=== PATIENT | male | born 1955 | race Caucasian/White ===

== ENCOUNTER 2017-01-15 14:37 | Emergency (ER) | payer OTHER ==
[2017-01-15 14:58] VITALS: RESP 16; TEMP 98.1
[2017-01-15] MEDS ORDERED: NS 1,000 ML IV ONE (15:43)
[2017-01-15] MEDS ORDERED: VANCOMYCIN HCL/NORMAL SALINE 250 ML IV ONE (15:44)
--- NOTE | 2017-01-15 15:59 | EDPHY ---
H & P Stated Complaint: R forearm arm swelling redness x 4 days Time Seen by Provider: 01/15/17 15:27 HPI/ROS: CHIEF COMPLAINT: Right arm redness and swelling HISTORY OF PRESENT ILLNESS: The patient presents to the ED for evaluation of right arm redness and swelling. The patient developed an olecranon bursitis earlier in the week after working out. The patient was seen at urgent care on Friday. He had a bursal aspiration which is growing out Staph Aureus without sensitivities yet performed. The patient was started on Bactrim at that point time. The patient has been following up as an outpatient at [facility]. Today he had progressive redness of the extremity which prompted his referral to the ED. The patient denies any acute numbness or weakness. He has no significant pain with any active range of motion. The patient denies significant past medical history. He specifically denies history of diabetes or immunosuppression. The patient is currently scheduled to travel back to [place] tomorrow. The orthopedic surgeon at [facility] would like him to receive 2 IV doses of antibiotics prior to determining whether that is appropriate. The patient would like to be treated as an outpatient and not admitted to the hospital. The patient is a physician. REVIEW OF SYSTEMS: A comprehensive 10 point review of systems is otherwise negative aside from elements mentioned in the history of present illness. Source: Patient Exam Limitations: No limitations - Personal History Current Tetanus/Diphtheria Vaccine: Unsure Current Tetanus Diphtheria and Acellular Pertussis (TDAP): Unsure - Medical/Surgical History Hx Asthma: No Hx Chronic Respiratory Disease: No Hx Diabetes: No Hx Cardiac Disease: No Hx Renal Disease: No Hx Cirrhosis: No Hx Alcoholism: No Hx HIV/AIDS: No Hx Splenectomy or Spleen Trauma: No Other PMH: denies - Social History Smoking Status: Never smoked - Physical Exam Exam: General Appearance: Alert, no distress Eyes: Pupils equal and round no pallor or injection ENT, Mouth: Mucous membranes moist Respiratory: There are no retractions, lungs are clear to auscultation Cardiovascular: Regular rate and rhythm Gastrointestinal: Abdomen is soft and nontender, no masses, bowel sounds normal Neurological: A&O, normal motor function, normal sensory exam, normal cranial nerves Skin: Erythema to right upper extremity Musculoskeletal: Tender over right olecranon bursa, no evidence of septic arthritis. Extremities: No tenderness to palpation or crepitus noted in the right upper extremity. No clinical evidence of abscess or necrotizing fasciitis Constitutional: Initial Vital Signs Temperature (C) 36.9 C 01/15/17 14:43 Heart Rate 53 L 01/15/17 14:43 Respiratory Rate 14 01/15/17 14:43 Blood Pressure 188/86 H 01/15/17 14:43 O2 Sat (%) 96 01/15/17 14:43 O2 Delivery Mode Room Air Allergies/Adverse Reactions: Penicillins Allergy (Verified 01/15/17 14:51) Home Medications: Medication Instructions Recorded Bactrim DS 01/15/17 Medical Decision Making ED Course/Re-evaluation: The patient was referred to the emergency department from [facility] for IV antibiotics. The patient does have an infected right olecranon bursa. I did aspirate approximately 3 mL of turbid fluid from the bursa. It is already been cultured. Sensitivities are waiting. The patient did receive a 1 g dose of vancomycin. The patient is noted to be neurologically intact. There is no evidence necrotizing fasciitis involving the upper extremity. The patient is interested in receiving outpatient IV antibiotic therapy. He would like to return to [place] tomorrow. 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 The patient was offered admission to the hospital and he declined. The patient will return to the emergency department tomorrow for an additional dose of IV vancomycin prior to flying back to [place]. The patient is advised to return to the ED sooner for increasing pain, fever, numbness, weakness or other concerns. The patient is currently taking oral Bactrim which he should continue. Differential Diagnosis: Differential diagnosis considered includes olecranon bursitis, septic arthritis , cellulitis, abscess, necrotizing fasciitis - Data Points Laboratory Results: Laboratory Results 01/15/17 16:05 01/15/17 16:05 01/15/17 01/15/17 16:05 16:05 WBC 9.93 10^3/uL H 10^3/uL (3.80-9.50) RBC 4.71 10^6/uL 10^6/uL (4.40-6.38) Hgb 14.2 g/dL g/dL (13.7-17.5) Hct 42.7 % % (40.0-51.0) MCV 90.7 fL fL (81.5-99.8) MCH 30.1 pg pg (27.9-34.1) MCHC 33.3 g/dL g/dL (32.4-36.7) RDW 13.7 % % (11.5-15.2) Plt Count 257 10^3/uL 10^3/uL (150-400) MPV 9.5 fL fL (8.7-11.7) Neut % (Auto) 81.6 % H % (39.3-74.2) Lymph % (Auto) 9.1 % L % (15.0-45.0) [place] % (Auto) 8.4 % % (4.5-13.0) Eos % (Auto) 0.4 % L % (0.6-7.6) Baso % (Auto) 0.2 % L % (0.3-1.7) Nucleat RBC Rel Count 0.0 % % (0.0-0.2) Absolute Neuts (auto) 8.11 10^3/uL H 10^3/uL (1.70-6.50) Absolute Lymphs (auto) 0.90 10^3/uL L 10^3/uL (1.00-3.00) Absolute Monos (auto) 0.83 10^3/uL H 10^3/uL (0.30-0.80) Absolute Eos (auto) 0.04 10^3/uL 10^3/uL (0.03-0.40) Absolute Basos (auto) 0.02 10^3/uL 10^3/uL (0.02-0.10) Absolute Nucleated RBC 0.00 10^3/uL 10^3/uL (0-0.01) Immature Gran % 0.3 % % (0.0-1.1) Immature Gran # 0.03 10^3/uL 10^3/uL (0.00-0.10) Sodium 138 mEq/L mEq/L (134-144) Potassium 4.7 mEq/L mEq/L (3.5-5.2) Chloride 102 mEq/L mEq/L (97-110) Carbon Dioxide 24 mEq/l mEq/l (22-31) Anion Gap 12 mEq/L mEq/L (8-16) BUN 19 mg/dL mg/dL (7-23) Creatinine 1.0 mg/dL mg/dL (0.7-1.3) Estimated GFR > 60 Glucose 84 mg/dL mg/dL (70-100) Calcium 9.6 mg/dL mg/dL (8.5-10.4) Medications Given: Discontinued Medications Sodium Chloride (Ns) 1,000 mls @ 0 mls/hr IV ONCE ONE; Wide Open PRN Reason: Protocol Stop: 01/15/17 15:44 Last Admin: 01/15/17 16:20 Dose: 1,000 mls Vancomycin/Sodium Chloride (Vancomycin 1 Gm (Premix)) 250 mls @ 250 mls/hr IV EDNOW ONE PRN Reason: Protocol Stop: 01/15/17 16:43 Last Admin: 01/15/17 16:20 Dose: 250 mls Departure - Departure Disposition: Home, Routine, Self-Care Clinical Impression: Cellulitis, Olecranon bursitis Condition: Good Instructions: Elbow Bursitis (ED) Additional Instructions: 1. Return to the emergency department tomorrow for additional dose of IV vancomycin. 2. Please continue oral antibiotics as prescribed. 3. Please return to the ED sooner for increasing pain, fever, numbness, weakness , worsening symptoms or other concerns. Referrals: AISHA BRISCOE [Other] - As per Instructions
[2017-01-15 16:12] LABS: % IMMATURE GRANULYOCYTES 0.3 % (0.0-1.1); ABSOLUTE IMMATURE GRANULOCYTES 0.03 10^3/uL (0.00-0.10); ADD DIFF? NO; ADD MORPH? NO; ADD SCAN? NO; ATYPICAL LYMPHOCYTE FLAG 10 (0-99); FRAGMENT RBC FLAG 0 (0-99); HEMATOCRIT 42.7 % (40.0-51.0); HEMOGLOBIN 14.2 g/dL (13.7-17.5); LEFT SHIFT FLG 10 (0-99); LIPEMIA HEMOLYSIS FLAG 80 (0-99); MEAN CELL HEMOGLOBIN 30.1 pg (27.9-34.1); MEAN CELL HEMOGLOBIN CONCENTR. 33.3 g/dL (32.4-36.7); MEAN CELL VOLUME 90.7 fL (81.5-99.8); MEAN PLATELET VOLUME 9.5 fL (8.7-11.7); PLATELET CLUMPS FLAG 20 (0-99); PLATELET COUNT 257 10^3/uL (150-400); RED BLOOD CELL COUNT 4.71 10^6/uL (4.40-6.38); RED CELL DISTRIBUTION WIDTH 13.7 % (11.5-15.2)
[2017-01-15 16:28] LABS: ANION GAP 12 mEq/L (8-16); CALCIUM 9.6 mg/dL (8.5-10.4); CARBON DIOXIDE 24 mEq/l (22-31); CHLORIDE 102 mEq/L (97-110); GLOMERULAR FILTRATION RATE > 60; GLUCOSE 84 mg/dL (70-100); POTASSIUM 4.7 mEq/L (3.5-5.2); SODIUM 138 mEq/L (134-144)
[2017-01-15 17:45] VITALS: BP 121/77; PULSE 72; O2SAT 95
== END 2017-01-15 17:44 | disposition home or self-care (01) ==
PROC: 0M933ZZ Drainage of Right Elbow Bursa and Ligament, Percutaneous Approach (ICD-10-PCS; principal; 2017-01-15)
DX: L03.113 Cellulitis of right upper limb (principal); M70.21 Olecranon bursitis, right elbow
CPT/HCPCS: 96365; J3370

== ENCOUNTER 2017-01-16 09:33 | Emergency (ER) | payer OTHER ==
--- NOTE | 2017-01-16 10:09 | EDPHY ---
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 He is here for repeat IV vancomycin antibiotics. Patient states that since his last dose yesterday the redness in his distal right upper extremity has improved. He has decreased pain. He still has swelling at the right elbow. There is mild redness in the brachium. He has had no fevers or chills. No nausea or vomiting. Patient states he was planning on going home to [facility] but has prolonged his stay till Friday. REVIEW OF SYSTEMS: My complete review of systems is negative except as mentioned in the HPI. Past Medical/Surgical History: Negative Smoking Status: Never smoked Physical Exam: Vitals noted General Appearance: Alert and no distress. Head: Pupils equal. Normal. Respiratory: No respiratory distress. Cardiac: regular rate and rhythm. Extremities: Patient's right elbow is swollen. There is mild surrounding erythema. There is mild streaking up the right medial brachium. The forearm, wrist and hand have no erythema or warmth. Minimal fluid surrounding the olecranon. Skin: No rashes or lesions. Neuro: Alert. Normal mood and affect. Constitutional: Initial Vital Signs Temperature (C) 36.6 C 01/16/17 09:37 Heart Rate 74 01/16/17 09:37 Respiratory Rate 20 01/16/17 09:37 Blood Pressure 122/76 H 01/16/17 09:37 O2 Sat (%) 97 01/16/17 09:37 O2 Delivery Mode Room Air Allergies/Adverse Reactions: Penicillins Allergy (Verified 01/16/17 09:36) Home Medications: Medication Instructions Recorded Bactrim DS 01/15/17 Medical Decision Making ED Course/Re-evaluation: In the emergency department I discussed possible etiologies with the patient. I answered all his questions. I explained his diagnosis. Patient has an IV in place. He is given vancomycin 1 g IV. This is 2nd dose of vancomycin. I do not feel he needs a trough level at this time. I discussed the case with our case management associate. This was an attempt to arrange a plan for the patient's ongoing treatment since he is staying in [place] tell Friday. The case management associate spoke with Dr. Dobson's office. They will attempt to arrange outpatient management. If the patient does not hear from their office or no outpatient management is arrange he will return to the emergency department in 12 hours for repeat dose of vancomycin and recheck. Differential Diagnosis: My differential includes but is not limited to bursitis, cellulitis, abscess, septic joint, bacteremia, sepsis - Data Points Medications Given: Discontinued Medications Vancomycin/Sodium Chloride (Vancomycin 1 Gm (Premix)) 250 mls @ 250 mls/hr IV EDNOW ONE PRN Reason: Protocol Stop: 01/16/17 11:18 Last Admin: 01/16/17 10:56 Dose: 250 mls Departure - Departure Disposition: Home, Routine, Self-Care Clinical Impression: Cellulitis of right elbow Olecranon bursitis Qualifiers: Laterality: right Qualified Code(s): M70.21 - Olecranon bursitis, right elbow Condition: Good Instructions: Cellulitis (ED), Elbow Bursitis (ED) Additional Instructions: The case management associate contacted Dr. Dobson'soffice. If you do not hear from them today you need to return to the emergency department 12 hours for repeat dose of vancomycin. Return sooner with increased redness, pain, fever or any other concerns. Referrals: AISHA BRISCOE [Other] - As per Instructions Alex Dobson MD [Medical Doctor] - 1-2 days without fail
[2017-01-16] MEDS ORDERED: VANCOMYCIN HCL/NORMAL SALINE 250 ML IV ONE (10:19)
[2017-01-16 11:08] VITALS: RESP 16; TEMP 98.1; O2SAT 95
[2017-01-16 11:47] VITALS: BP 131/78; PULSE 65
== END 2017-01-16 11:52 | disposition home or self-care (01) ==
DX: M70.21 Olecranon bursitis, right elbow (principal); L03.113 Cellulitis of right upper limb
CPT/HCPCS: 96365; J3370